=== PATIENT | male | born 1970 | race Caucasian/White ===

== ENCOUNTER 2019-01-25 11:41 | Inpatient (IN) | payer OTHER ==
[2019-01-25] MEDS ORDERED: ONDANSETRON HCL INJ/PF 4 MG/2 ML SDV IV ONE (12:22)
[2019-01-25] MEDS ORDERED: NORMAL SALINE 1000 ML 1,000 ML IV ONE ×3 (12:22→14:28)
--- NOTE | 2019-01-25 12:23 | ER Document Report ---
ED Medical Screen (RME) - General Chief Complaint: Abdominal Cramping Stated Complaint: HEAT EXPOSURE Time Seen by Provider: 01/25/19 12:13 Primary Care Provider: DEANDRA SEPULVEDA [Primary Care Provider] - Follow up as needed Mode of Arrival: Ambulatory Information source: Patient Notes: Patient is a 48-year-old male presented emergency department with complaints of all over body cramping, fatigue and nausea. He states that on Monday he got overheated and had vomiting for several days. He states that although the vomiting has worries resolved he continues to have generalized malaise and nausea. Exam: Patient alert, oriented and answering all questions appropriately and in no acute distress at the time of my evaluation. Lung sounds clear and equal bilaterally. Heart sounds S1-S2 present with no ectopy noted. I have greeted and performed a rapid initial assessment of this patient. A comprehensive ED assessment and evaluation of the patient, analysis of test results and completion of the medical decision making process will be conducted by additional ED providers. I have specifically instructed the patient or family members with the patient to immediately return to any nursing staff should anything change in the patient's condition or with their chief complaint. This medical record was dictated with voice recognizing software. There may be grammatical, syntax errors that are unintended. TRAVEL OUTSIDE OF THE [place] IN LAST 30 DAYS: No - Related Data Allergies/Adverse Reactions: Penicillins Allergy (Verified 01/25/19 11:45) Past Medical History - Social History Chew tobacco use (# tins/day): No Frequency of alcohol use: Social Drug Abuse: None - Past Medical History Cardiac Medical History: Reports: Hx Hypercholesterolemia Renal/ Medical History: Denies: Hx Peritoneal Dialysis Physical Exam - Vital signs Vitals: Temp Pulse Resp BP Pulse Ox 98.4 F 79 12 108/74 97 01/25/19 12:04 01/25/19 12:04 01/25/19 12:04 01/25/19 12:04 01/25/19 12:04 Course - Vital Signs Vital signs: Temp Pulse Resp BP Pulse Ox 98.4 F 79 12 108/74 97 01/25/19 12:04 01/25/19 12:04 01/25/19 12:04 01/25/19 12:04 01/25/19 12:04 Doctor's Discharge - Discharge Referrals: LOCALMD,NO [Primary Care Provider] - Follow up as needed
[2019-01-25 12:41] LABS: HEMATOCRIT 46.9 % (37.9-51.0); HEMOGLOBIN 16.2 g/dL (13.5-17.0); MEAN CORPUSCULAR HGB CONC 34.5 g/dL (32.0-36.0); MEAN CORPUSCULAR VOLUME 87 fl (80-97); PLATELET COUNT 390 10^3/uL (150-450); RED CELL DISTRIBUTION WIDTH 13.9 % (11.5-14.0)
[2019-01-25 12:45] LABS: AMORPHOUS SEDIMENT,URINE TRACE /HPF; APPEARANCE,URINE CLOUDY; BILIRUBIN,URINE NEGATIVE (NEGATIVE); COLOR,URINE YELLOW; GLUCOSE, URINE 50 mg/dL (NEGATIVE); KETONES,URINE NEGATIVE (NEGATIVE); LEUKOCYTE ESTERASE,URINE NEGATIVE (NEGATIVE); NITRITE,URINE NEGATIVE (NEGATIVE); PROTEIN,URINE 100 mg/dL (NEGATIVE); URINE SPECIFIC GRAVITY 1.015; UROBILINOGEN,URINE NEGATIVE mg/dL (<2.0)
[2019-01-25 13:02] LABS: ABSOLUTE LYMPHOCYTES# (MANUAL) 4.6 10^3/uL (0.5-4.7); ABSOLUTE MONOCYTES # (MANUAL) 1.5 10^3/uL (0.1-1.4); BASOPHILS % (MANUAL) 0 % (0-2); EOSINOPHILS % (MANUAL) 1 % (0-6); LYMPHOCYTES % (MANUAL) 21 % (13-45); MONOCYTES % (MANUAL) 7 % (3-13); RBC MORPHOLOGY COMMENT NORMO-CYTIC/CHROMIC; SEGMENTED NEUTROPHILS % (MAN) 71 % (42-78); TOTAL CELLS COUNTED 100
[2019-01-25 13:03] LABS: PLATELET CLUMPS PRESENT; PLATELET COMMENT ADEQUATE
--- NOTE | 2019-01-25 13:29 | ER Document Report ---
ED General - General Chief Complaint: Abdominal Cramping Stated Complaint: HEAT EXPOSURE Time Seen by Provider: 01/25/19 12:13 Primary Care Provider: DAENDRA SEPULVEDA [NO LOCAL MD] - Follow up as needed Mode of Arrival: Ambulatory Information source: Patient, Relative TRAVEL OUTSIDE OF THE [place] 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 He admittedly did not drink enough fluid. Yesterday, he developed generalized cramping, N/V and malaise. He feels somewhat better today but still dehydrated. - Related Data Allergies/Adverse Reactions: Penicillins Allergy (Verified 01/25/19 11:45) Past Medical History - General Information source: Patient - Social History Smoking Status: Never Smoker Chew tobacco use (# tins/day): No Frequency of alcohol use: Social Drug Abuse: None Family History: None Patient has suicidal ideation: No Patient has homicidal ideation: No - Past Medical History Cardiac Medical History: Reports: Hx Hypercholesterolemia Renal/ Medical History: Denies: Hx Peritoneal Dialysis Review of Systems - Review of Systems Constitutional: See HPI, Malaise, Weakness EENT: No symptoms reported Cardiovascular: No symptoms reported Respiratory: No symptoms reported Gastrointestinal: See HPI, Nausea, Vomiting Skin: No symptoms reported Neurological/Psychological: No symptoms reported -: Yes All other systems reviewed and negative Physical Exam - Vital signs Vitals: Temp Pulse Resp BP Pulse Ox 98.4 F 79 12 108/74 97 01/25/19 12:04 01/25/19 12:04 01/25/19 12:04 01/25/19 12:04 01/25/19 12:04 - General General appearance: Appears well In distress: None - HEENT Head: Normocephalic Mouth/Lips: Normal Mucous membranes: Other - slightly dry mucous membranes Pharynx: Normal Neck: Normal - Respiratory Respiratory status: No respiratory distress Breath sounds: Normal - Cardiovascular Rhythm: Regular Heart sounds: Normal auscultation Murmur: No - Abdominal Distension: No distension Bowel sounds: Normal Tenderness: Nontender Organomegaly: No organomegaly - Back Back: Normal, Nontender - Extremities General upper extremity: Normal inspection General lower extremity: Normal inspection - Neurological Neuro grossly intact: Yes Cognition: Normal Orientation: AAOx4 Speech: Normal Motor strength normal: LUE, RUE, LLE, RLE Sensory: Normal Course - Re-evaluation Re-evalutation: 01/25/19 14:40 I have re-assessed him and he feels better on his 3rd liter him of IVF. I have informed him that I recommend he being admitted for IVF and obs. and he is in agreement with this. - Vital Signs Vital signs: Temp Pulse Resp BP Pulse Ox 98.4 F 79 12 108/74 97 01/25/19 12:04 01/25/19 12:04 01/25/19 12:04 01/25/19 12:04 01/25/19 12:04 - Laboratory Result Diagrams: 01/25/19 12:26 01/25/19 13:19 Laboratory results interpreted by me: 01/25/19 01/25/19 01/25/19 12:26 12:26 13:19 WBC 22.0 H Abs Neuts (Manual) 15.6 H Abs Monocytes (Manual) 1.5 H Sodium 126.2 L Potassium 5.3 H Chloride 81 L Carbon Dioxide 19 L Anion Gap 26 H BUN 100 H Creatinine 11.68 H Est GFR ( Amer) 6 L Est GFR (Non-Af Amer) 5 L Calcium 7.3 L Creatine Kinase 886 H CK-MB (CK-2) Urine Protein 100 H Urine Glucose (UA) 50 H Urine Blood LARGE H 01/25/19 13:25 WBC Abs Neuts (Manual) Abs Monocytes (Manual) Sodium Potassium Chloride Carbon Dioxide Anion Gap BUN Creatinine Est GFR ( Amer) Est GFR (Non-Af Amer) Calcium Creatine Kinase CK-MB (CK-2) 4.79 H Urine Protein Urine Glucose (UA) Urine Blood - Consults akua Solis Time consulted: 14:43 Critical Care Note - Critical Care Note Total time excluding time spent on procedures (mins): 30 Discharge - Discharge Clinical Impression: Rhabdomyolysis Qualifiers: Rhabdomyolysis type: non-traumatic Qualified Code(s): M62.82 - Rhabdomyolysis Renal failure Qualifiers: Renal failure chronicity: acute Acute renal failure type: unspecified Qualified Code(s): N17.9 - Acute kidney failure, unspecified Condition: Stable Disposition: ADMITTED OBSERVATION Admitting Provider: [facility] Admitted: Telemetry Referrals: LOCALMD,NO [NO LOCAL MD] - Follow up as needed
[2019-01-25 13:48] LABS: ALANINE AMINOTRANSFERASE 25 U/L (21-72); ALBUMIN 4.4 g/dL (3.5-5.0); ALKALINE PHOSPHATASE 54 U/L (38-126); ASPARTATE AMINO TRANSFERASE 24 U/L (17-59); BILIRUBIN,DIRECT 0.4 mg/dL (0.0-0.4); BLOOD UREA NITROGEN 100 mg/dL (7-20); CALCIUM 7.3 mg/dL (8.4-10.2); CREATINE KINASE 886 U/L (55-170); GLUCOSE 97 mg/dL (75-110); POTASSIUM 5.3 mmol/L (3.6-5.0); TOTAL PROTEIN 6.8 g/dL (6.3-8.2)
[2019-01-25 13:53] LABS: CARBON DIOXIDE 19 mmol/L (22-30); CHLORIDE 81 mmol/L (98-107); SODIUM 126.2 mmol/L (137-145)
[2019-01-25 13:56] LABS: ANION GAP 26 (5-19)
[2019-01-25 14:24] LABS: CREATINE KINASE MB 4.79 ng/mL (<4.55)
[2019-01-25 14:26] LABS: TROPONIN I < 0.012 ng/mL
[2019-01-25] MEDS ORDERED: ACETAMINOPHEN 325 MG TABLET PO PRN (16:28)
[2019-01-25] MEDS ORDERED: MAG HYDROX/AL HYDROX/SIMETH SUSP 30 ML UDCUP PO PRN (16:28)
[2019-01-25] MEDS ORDERED: ONDANSETRON HCL INJ/PF 4 MG/2 ML SDV IV PRN (16:28)
[2019-01-25] MEDS ORDERED: MAGNESIUM HYDROXIDE SUSP 30 ML UDCUP PO PRN (16:28)
[2019-01-25] MEDS ORDERED: ALBUTEROL SULFATE 0.083% NEB 2.5 MG/3 ML AMPUL NEB PRN (16:28)
[2019-01-25] MEDS ORDERED: PROMETHAZINE HCL 25 MG TABLET PO PRN (16:28)
[2019-01-25] MEDS: NORMAL SALINE 1000 ML 1,000 ML IV PRN (17:31)
[2019-01-25 17:44] LABS: ANION GAP 19 (5-19); BLOOD UREA NITROGEN 90 mg/dL (7-20); CARBON DIOXIDE 20 mmol/L (22-30); CHLORIDE 91 mmol/L (98-107); GLUCOSE 95 mg/dL (75-110); POTASSIUM 5.4 mmol/L (3.6-5.0); SODIUM 129.6 mmol/L (137-145)
--- NOTE | 2019-01-25 17:51 | PDOC H&P ---
History of Present Illness Admission Date/PCP: 01/25/19 16:28 HELENA GA MD Patient complains of: nausea/vomiting, muscle cramps History of Present Illness: NAWAF MOYA is a 48 year old male with a past medical history for hypertension and cavernous angioma with a history of intracranial bleed (no stents or coils) who presented to the emergency department today with a complaint of 3 days of nausea and vomiting with poor p.o. intake now associated with muscle cramps. 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 Evaluation in the emergency department reveals leukocytosis (WBCs 22), and acute renal failure with a creatinine of 11.68, BUN 100, anion gap acidosis, hyponatremia, hyperkalemia, and CK of 886. Urinalysis is negative, EKG demonstrates normal sinus rhythm. Vital signs are stable. Patient does endorse 2 days without urinary output; he is not producing large volumes of urine following 3 L IV fluid bolus. He is referred to the hospitalist service for admission and management of the above-stated complaints and findings. Past Medical History Cardiac Medical History: Reports: Hyperlipidema Pulmonary Medical History: Reports: None EENT Medical History: Reports: None Neurological Medical History: Reports: Other - Cavernous angioma Endocrine Medical History: Reports: None Renal/ Medical History: Reports: None Malignancy Medical History: Reports: None GI Medical History: Reports: None Musculoskeltal Medical History: Reports: None Skin Medical History: Reports: None Psychiatric Medical History: Reports: None Traumatic Medical History: Reports: None Hematology: Reports: None Infectious Medical History: Reports: None Past Surgical History Past Surgical History: Reports: None Social History Information Source: Patient Lives with: Family Smoking Status: Never Smoker Frequency of Alcohol Use: Social Hx Recreational Drug Use: No Drugs: None Hx Prescription Drug Abuse: No - Advance Directive Resuscitation Status: Full Code Surrogate healthcare decision maker:: Patient's , Larissa Moya Family History Family History: Reviewed & Not Pertinent, CAD, CVA, Hypertension, Malignancy Parental Family History Reviewed: Yes Children Family History Reviewed: Yes Sibling(s) Family History Reviewed.: Yes Medication/Allergy Home Medications: Lisinopril [Prinivil] 20 mg PO DAILY 01/25/19 Allergies/Adverse Reactions: Penicillins Allergy (Verified 01/25/19 11:45) Review of Systems Constitutional: PRESENT: anorexia, headache(s), weakness. ABSENT: chills, fever(s), weight gain, weight loss Eyes: ABSENT: visual disturbances Ears: ABSENT: hearing changes Nose, Mouth, and Throat: PRESENT: sore throat Cardiovascular: ABSENT: chest pain, dyspnea on exertion, edema, orthropnea, palpitations Respiratory: ABSENT: cough, hemoptysis Gastrointestinal: PRESENT: nausea, vomiting. ABSENT: abdominal pain, constipation, diarrhea, hematemesis, hematochezia Genitourinary: ABSENT: dysuria, hematuria Musculoskeletal: PRESENT: other - Muscle cramps. ABSENT: joint swelling Integumentary: ABSENT: rash, wounds Neurological: ABSENT: abnormal gait, abnormal speech, confusion, dizziness, focal weakness, syncope Psychiatric: ABSENT: anxiety, depression, homidical ideation, suicidal ideation Endocrine: PRESENT: other - Oliguria. ABSENT: cold intolerance, heat intolerance, polydipsia, polyuria Hematologic/Lymphatic: ABSENT: easy bleeding, easy bruising Physical Exam Vital Signs: Temp Pulse Resp BP Pulse Ox 98.4 F 79 18 103/56 L 97 01/25/19 12:04 01/25/19 12:04 01/25/19 17:01 01/25/19 17:01 01/25/19 17:01 Intake & Output 01/24/19 01/25/19 01/26/19 06:59 06:59 06:59 Intake Total 3000 Balance 3000 Weight 74.2 kg General appearance: PRESENT: no acute distress, cooperative, well-developed, well-nourished Head exam: PRESENT: atraumatic, normocephalic Eye exam: PRESENT: conjunctiva pink, EOMI, PERRLA. ABSENT: scleral icterus Ear exam: PRESENT: normal external ear exam Mouth exam: PRESENT: moist, tongue midline Neck exam: ABSENT: carotid bruit, JVD, lymphadenopathy, thyromegaly Respiratory exam: PRESENT: clear to auscultation seb, symmetrical, unlabored. ABSENT: rales, rhonchi, wheezes Cardiovascular exam: PRESENT: RRR, +S1, +S2. ABSENT: diastolic murmur, rubs, systolic murmur Pulses: PRESENT: normal dorsalis pedis pul Vascular exam: PRESENT: normal capillary refill GI/Abdominal exam: PRESENT: normal bowel sounds, soft. ABSENT: distended, guarding, mass, organolmegaly, rebound, tenderness Rectal exam: PRESENT: deferred Extremities exam: PRESENT: full ROM. ABSENT: calf tenderness, clubbing, pedal edema Neurological exam: PRESENT: alert, awake, oriented to person, oriented to place, oriented to time, oriented to situation, CN II-XII grossly intact. ABSENT: motor sensory deficit Psychiatric exam: PRESENT: appropriate affect, normal mood. ABSENT: homicidal ideation, suicidal ideation Skin exam: PRESENT: dry, intact, warm. ABSENT: cyanosis, rash Results Laboratory Results: 01/25/19 12:26 01/25/19 01/25/19 01/25/19 12:26 12:26 12:26 WBC 22.0 H RBC 5.40 Hgb 16.2 Hct 46.9 MCV 87 MCH 30.0 MCHC 34.5 RDW 13.9 Plt Count 390 Seg Neutrophils % Not Reportable Lymphocytes % Not Reportable Monocytes % Not Reportable Eosinophils % Not Reportable Basophils % Not Reportable Absolute Neutrophils Not Reportable Absolute Lymphocytes Not Reportable Absolute Monocytes Not Reportable Absolute Eosinophils Not Reportable Absolute Basophils Not Reportable Sodium Cancelled Potassium Cancelled Chloride Cancelled Carbon Dioxide Cancelled Anion Gap Cancelled BUN Cancelled Creatinine Cancelled Est GFR ( Amer) Cancelled Est GFR (Non-Af Amer) Cancelled Glucose Cancelled Calcium Cancelled Total Bilirubin Cancelled AST Cancelled ALT Cancelled Alkaline Phosphatase Cancelled Total Protein Cancelled Albumin Cancelled Urine Color YELLOW Urine Appearance CLOUDY Urine pH 5.0 Ur Specific [place] 1.015 Urine Protein 100 H Urine Glucose (UA) 50 H Urine Ketones NEGATIVE Urine Blood LARGE H Urine Nitrite NEGATIVE Ur Leukocyte Esterase NEGATIVE Urine WBC (Auto) 11 Urine RBC (Auto) 7 01/25/19 13:19 WBC RBC Hgb Hct MCV MCH MCHC RDW Plt Count Seg Neutrophils % Lymphocytes % Monocytes % Eosinophils % Basophils % Absolute Neutrophils Absolute Lymphocytes Absolute Monocytes Absolute Eosinophils Absolute Basophils Sodium 126.2 L Potassium 5.3 H Chloride 81 L Carbon Dioxide 19 L Anion Gap 26 H BUN 100 H Creatinine 11.68 H Est GFR ( Amer) 6 L Est GFR (Non-Af Amer) 5 L Glucose 97 Calcium 7.3 L Total Bilirubin 1.0 AST 24 ALT 25 Alkaline Phosphatase 54 Total Protein 6.8 Albumin 4.4 Urine Color Urine Appearance Urine pH Ur Specific [place] Urine Protein Urine Glucose (UA) Urine Ketones Urine Blood Urine Nitrite Ur Leukocyte Esterase Urine WBC (Auto) Urine RBC (Auto) 01/25/19 01/25/19 13:19 13:25 Creatine Kinase 886 H CK-MB (CK-2) 4.79 H Troponin I < 0.012 Assessment and Plan - Diagnosis (1) Renal failure Qualifiers: Renal failure chronicity: acute Acute renal failure type: unspecified Qualified Code(s): N17.9 - Acute kidney failure, unspecified Is this a current diagnosis for this admission?: Yes Plan: Patient is admitted with a creatinine of 7.68, BUN 100. He has associated hyponatremia, hyperkalemia, and anion gap acidosis. He does report 2 days of oliguria now has good urinary output following 3 L normal saline bolus. No history of chronic kidney disease personally or in family. Denies illicit drug use. Patient will be provided generous IV fluids. Avoid nephrotoxic medications. Serial chemistries every 6 hours to monitor electrolyte depletion. Nephrology has been consulted; per ED provider, Dr. Solis is aware of patient and will follow. (2) Rhabdomyolysis Qualifiers: Rhabdomyolysis type: non-traumatic Qualified Code(s): M62.82 - Rhabdomyolysis Is this a current diagnosis for this admission?: Yes Plan: CK 886 Continue IV fluids. (3) Leukocytosis Is this a current diagnosis for this admission?: Yes Plan: Likely secondary to heat exhaustion w/ nausea and vomiting. Patient is afebrile. Urinalysis is negative. No signs of active infection at this time. No indications for antibiotic therapy at this time. Follow up CBC in am (4) Hypertension Is this a current diagnosis for this admission?: Yes Plan: Holding home dose lisinopril 2/2 ARF. Monitor for need for antihypertensives. (5) Heat exhaustion Is this a current diagnosis for this admission?: Yes Plan: Evidenced by dehydration resulting in rhabdomyolysis and acute renal failure. Supportive care. - Time Time Spent with patient: 35 or more minutes Medications reviewed and adjusted accordingly: Yes Anticipated discharge: Home Within: within 72 hours - Inpatient Certification Based on my medical assessment, after consideration of the patient's comorbidities, presenting symptoms, or acuity I expect that the services needed warrant INPATIENT care.: Yes I certify that my determination is in accordance with my understanding of Medicare's requirements for reasonable and necessary INPATIENT services [42 CFR 412.3e].: Yes Medical Necessity: Need Close Monitoring Due to Risk of Patient Decompensation, Need For IV Fluids, Risk of Complication if Not Cared For in Hospital
[2019-01-25 18:35] LABS: URINE AMPHETAMINES SCREEN NEGATIVE; URINE BARBITURATES SCREEN NEGATIVE; URINE BENZODIAZEPINES SCREEN NEGATIVE; URINE COCAINE SCREEN NEGATIVE; URINE METHADONE SCREEN NEGATIVE; URINE PHENCYCLIDINE SCREEN NEGATIVE
[2019-01-25] MEDS ORDERED: CALCIUM GLUCONATE 1,000 MG in DEXTROSE 5%-WATER 50 ML IV ONE (18:46)
[2019-01-25] MEDS ORDERED: CALCIUM GLUCONATE 1000 MG/10 ML INJ IV ONE ×2 (19:00→21:20)
[2019-01-25] MEDS ORDERED: LACTULOSE SYRUP 20 GM/30 ML UDCUP PO ONE ×2 (19:00→22:00)
[2019-01-25 19:05] LABS: URINE MARIJUANA (THC) SCREEN UNCONFIRMED POSITIVE
[2019-01-25] MEDS: FAMOTIDINE 20 MG TABLET PO SCH (21:42)
[2019-01-25] MEDS: HEPARIN SOD (PORCINE) 5,000 UNIT/ML 1 ML SYRINGE SUBCUT SCH (21:43)
[2019-01-25 23:15] LABS: ANION GAP 15 (5-19); BLOOD UREA NITROGEN 81 mg/dL (7-20); CALCIUM 7.8 mg/dL (8.4-10.2); CARBON DIOXIDE 20 mmol/L (22-30); CHLORIDE 98 mmol/L (98-107); GLUCOSE 115 mg/dL (75-110); POTASSIUM 4.9 mmol/L (3.6-5.0); SODIUM 133.4 mmol/L (137-145)
[2019-01-26] MEDS: NORMAL SALINE 1000 ML 1,000 ML IV PRN ×3 (00:24→15:41)
[2019-01-26 04:42] LABS: HEMATOCRIT 39.1 % (37.9-51.0); MEAN CORPUSCULAR HEMOGLOBIN 30.1 pg (27.0-33.4); MEAN CORPUSCULAR HGB CONC 34.4 g/dL (32.0-36.0); MEAN CORPUSCULAR VOLUME 88 fl (80-97); PLATELET COUNT 278 10^3/uL (150-450); RED BLOOD COUNT 4.46 10^6/uL (4.35-5.55); RED CELL DISTRIBUTION WIDTH 13.8 % (11.5-14.0); WHITE BLOOD COUNT 11.2 10^3/uL (4.0-10.5)
[2019-01-26 04:50] LABS: HEMOGLOBIN 13.4 g/dL (13.5-17.0)
[2019-01-26 04:55] LABS: ANION GAP 13 (5-19); BLOOD UREA NITROGEN 65 mg/dL (7-20); CALCIUM 7.9 mg/dL (8.4-10.2); CARBON DIOXIDE 20 mmol/L (22-30); CHLORIDE 103 mmol/L (98-107); CREATINE KINASE 619 U/L (55-170); GLUCOSE 99 mg/dL (75-110); PHOSPHORUS 5.1 mg/dL (2.5-4.5); POTASSIUM 5.1 mmol/L (3.6-5.0)
[2019-01-26] MEDS: HEPARIN SOD (PORCINE) 5,000 UNIT/ML 1 ML SYRINGE SUBCUT SCH ×2 (06:19→13:15)
[2019-01-26] MEDS: DOCUSATE SODIUM 100 MG CAPSULE PO SCH (09:26)
[2019-01-26] MEDS: FAMOTIDINE 20 MG TABLET PO SCH ×2 (09:26→21:46)
[2019-01-26 12:20] LABS: ANION GAP 10 (5-19); BLOOD UREA NITROGEN 52 mg/dL (7-20); CALCIUM 8.3 mg/dL (8.4-10.2); CARBON DIOXIDE 23 mmol/L (22-30); CHLORIDE 106 mmol/L (98-107); GLUCOSE 93 mg/dL (75-110); POTASSIUM 5.5 mmol/L (3.6-5.0)
[2019-01-26] MEDS ORDERED: CALCIUM GLUCONATE 1,000 MG in DEXTROSE 5%-WATER 50 ML IV ONE (14:59)
[2019-01-26] MEDS ORDERED: ZOLPIDEM TARTRATE 5 MG TABLET PO PRN (15:00)
[2019-01-26] MEDS ORDERED: CALCIUM GLUCONATE 1000 MG/10 ML INJ IV ONE (15:30)
[2019-01-26] MEDS ORDERED: DEXTROSE 50%-WATER 25 GM/50 ML DISP.SYRIN IV ONE (15:30)
[2019-01-26] MEDS ORDERED: INSULIN REG, HUMAN 100 UNIT/ML 3 ML VIAL (PYX) IV ONE (15:30)
[2019-01-26 18:39] LABS: ANION GAP 10 (5-19); BLOOD UREA NITROGEN 43 mg/dL (7-20); CARBON DIOXIDE 22 mmol/L (22-30); CHLORIDE 108 mmol/L (98-107); POTASSIUM 4.9 mmol/L (3.6-5.0); SODIUM 139.8 mmol/L (137-145)
[2019-01-26 18:41] LABS: GLUCOSE 65 mg/dL (75-110)
[2019-01-26] MEDS ORDERED: DEXTROSE 40% GEL 15 GM TUBE PO PRN ×2 (18:53)
[2019-01-26] MEDS ORDERED: GLUCAGON,HUMAN RECOMB 1 MG INJ IM PRN (18:53)
[2019-01-26] MEDS ORDERED: DEXTROSE 50%-WATER 25 GM/50 ML DISP.SYRIN IV PRN ×2 (18:53)
--- NOTE | 2019-01-26 18:55 | Progress Note Acknowledgement ---
Progress Note Acknowledgement Progess Note Acknowledgement: I, the undersigned member of the medical staff with appropriate privileges and with supervisory authority over Dot Valdez, a [facility] practice allied health professional, acknowledge that I have reviewed the progress notes entered on this patient, and in my professional judgment believe that the assessment made and/or any care evidenced was appropriate
--- NOTE | 2019-01-26 19:04 | PDOC PROGRESS REPORT ---
Subjective Progress Note for:: 01/26/19 Subjective:: NAWAF MOYA is a 48 year old male with a past medical history for hypertension and cavernous angioma with a history of intracranial bleed (no stents or coils) who was admitted 01/25/2019 for acute renal failure and rhabdomyolysis. Patient was seen on afternoon rounds with family members present. He reports that he is feeling well today; all fatigue, muscle cramps, and nausea have resolved. He is tolerating a regular diet without difficulty. He further denies fever, chills, chest pain, palpitations, dyspnea, orthopnea, cough, abdominal pain, diarrhea, and peripheral edema. He reports excellent urinary output. He has no new questions or concerns. No concerns per nursing. Reason For Visit: ACUTE RENAL FAILURE,HEAT EXHAUSTION, Physical Exam Vital Signs: Temp Pulse Resp BP Pulse Ox 98.0 F 80 20 124/69 98 01/26/19 11:59 01/26/19 11:59 01/26/19 11:59 01/26/19 11:59 01/26/19 11:59 Intake & Output 01/25/19 01/26/19 01/27/19 06:59 06:59 06:59 Intake Total 4320 1999 Balance 4320 1999 Weight 72.6 kg General appearance: PRESENT: no acute distress, well-developed, well-nourished Head exam: PRESENT: atraumatic, normocephalic Eye exam: PRESENT: conjunctiva pink, EOMI, PERRLA. ABSENT: scleral icterus Ear exam: PRESENT: normal external ear exam Mouth exam: PRESENT: moist, tongue midline Neck exam: ABSENT: carotid bruit, JVD, lymphadenopathy, thyromegaly Respiratory exam: PRESENT: clear to auscultation seb, symmetrical, unlabored. ABSENT: rales, rhonchi, wheezes Cardiovascular exam: PRESENT: RRR. ABSENT: diastolic murmur, rubs, systolic murmur Pulses: PRESENT: normal dorsalis pedis pul Vascular exam: PRESENT: normal capillary refill GI/Abdominal exam: PRESENT: normal bowel sounds, soft. ABSENT: distended, guarding, mass, organolmegaly, rebound, tenderness Rectal exam: PRESENT: deferred Extremities exam: PRESENT: full ROM. ABSENT: calf tenderness, clubbing, pedal edema Musculoskeletal exam: PRESENT: ambulatory Neurological exam: PRESENT: alert, awake, oriented to person, oriented to place, oriented to time, oriented to situation, CN II-XII grossly intact. ABSENT: motor sensory deficit Psychiatric exam: PRESENT: appropriate affect, normal mood. ABSENT: homicidal ideation, suicidal ideation Skin exam: PRESENT: dry, intact, warm. ABSENT: cyanosis, rash Results Laboratory Results: 01/26/19 04:23 01/26/19 18:15 01/25/19 01/26/19 01/26/19 22:42 04:23 04:23 WBC 11.2 H RBC 4.46 Hgb 13.4 L D Hct 39.1 MCV 88 MCH 30.1 MCHC 34.4 RDW 13.8 Plt Count 278 Sodium 133.4 L 136.0 L Potassium 4.9 5.1 H Chloride 98 103 Carbon Dioxide 20 L 20 L Anion Gap 15 13 BUN 81 H 65 H Creatinine 7.32 H 5.14 H Est GFR ( Amer) 10 L 15 L Est GFR (Non-Af Amer) 8 L 12 L Glucose 115 H 99 Calcium 7.8 L 7.9 L Ionized Calcium Holli Phosphorus 5.1 H Magnesium 2.3 01/26/19 01/26/19 01/26/19 09:45 11:44 18:15 WBC RBC Hgb Hct MCV MCH MCHC RDW Plt Count Sodium 139.0 139.8 Potassium 5.5 H 4.9 Chloride 106 108 H Carbon Dioxide 23 22 Anion Gap 10 10 BUN 52 H 43 H Creatinine 3.12 H 2.53 H Est GFR ( Amer) 26 L 33 L Est GFR (Non-Af Amer) 21 L 27 L Glucose 93 65 L Calcium 8.3 L 9.0 Ionized Calcium Holli 1.07 L Phosphorus Magnesium 01/25/19 01/25/19 01/26/19 13:19 13:25 04:23 Creatine Kinase 886 H 619 H CK-MB (CK-2) 4.79 H Troponin I < 0.012 01/26/19 04:23 Creatine Kinase CK-MB (CK-2) 2.02 Troponin I Assessment and Plan - Diagnosis (1) Renal failure Qualifiers: Renal failure chronicity: acute Acute renal failure type: unspecified Qualified Code(s): N17.9 - Acute kidney failure, unspecified Is this a current diagnosis for this admission?: Yes Plan: Significant improvement; Cr 11.68-> 2.53 Anion gap acidosis is resolved. No history of chronic kidney disease personally or in family. Denies illicit drug use; UDS positive for THC only. He is admitted to the medical floor on telemetry. Will continue generous IV fluids. Avoid nephrotoxic medications. Follow chemistries. Nephrology has been consulted; per ED provider, Dr. Solis is aware of patient and will follow. (2) Rhabdomyolysis Qualifiers: Rhabdomyolysis type: non-traumatic Qualified Code(s): M62.82 - Rhabdomyolysis Is this a current diagnosis for this admission?: Yes Plan: Improved; CK 886-> 619 Patient reports muscle cramping has resolved. Continue IV fluids. Follow daily CK (3) Leukocytosis Is this a current diagnosis for this admission?: Yes Plan: Improved; WBC 22-> 11 Likely secondary to heat exhaustion w/ nausea and vomiting. Patient is afebrile. Urinalysis is negative. No signs of active infection at this time. No indications for antibiotic therapy at this time. Follow up CBC in am (4) Hypertension Is this a current diagnosis for this admission?: Yes Plan: Acceptable blood pressures at this time. Holding home dose lisinopril 2/2 ARF. Monitor for need for antihypertensives. (5) Heat exhaustion Is this a current diagnosis for this admission?: Yes Plan: Evidenced by dehydration resulting in rhabdomyolysis and acute renal failure. Supportive care. (6) Hyperkalemia Is this a current diagnosis for this admission?: Yes Plan: Improved; 5.3-> 4.9-> 5.5-> 4.9 Secondary to #1 Received Lactulose overnight Checked EKG this afternoon; peak T-waves Have provided Calcium, D50, and Insulin w/ decrease to 4.9 Continue to monitor serial chemistries. (7) Hypocalcemia Is this a current diagnosis for this admission?: Yes Plan: Secondary to #1 Has received Calcium gluconate x2 with improvement Follow serial chemistries and continue to replace as needed. - Time Time Spent with patient: 25-34 minutes Medications reviewed and adjusted accordingly: Yes Anticipated discharge: Home
--- NOTE | 2019-01-26 19:25 | EKG REPORT ---
SEVERITY:- NORMAL ECG - SINUS RHYTHM : Confirmed by: Nancy Gusman 26-Jan-2019 19:23:51
--- NOTE | 2019-01-26 19:25 | EKG REPORT ---
SEVERITY:- NORMAL ECG - SINUS RHYTHM : Confirmed by: Nancy Gusman 26-Jan-2019 19:23:47
[2019-01-27 05:38] LABS: HEMATOCRIT 40.1 % (37.9-51.0); HEMOGLOBIN 13.4 g/dL (13.5-17.0); MEAN CORPUSCULAR HGB CONC 33.4 g/dL (32.0-36.0); MEAN CORPUSCULAR VOLUME 90 fl (80-97); PLATELET COUNT 273 10^3/uL (150-450); RED BLOOD COUNT 4.46 10^6/uL (4.35-5.55); RED CELL DISTRIBUTION WIDTH 13.8 % (11.5-14.0); WHITE BLOOD COUNT 10.2 10^3/uL (4.0-10.5)
[2019-01-27 06:02] LABS: ANION GAP 9 (5-19); BLOOD UREA NITROGEN 31 mg/dL (7-20); CALCIUM 8.7 mg/dL (8.4-10.2); CARBON DIOXIDE 22 mmol/L (22-30); CHLORIDE 110 mmol/L (98-107); GLUCOSE 88 mg/dL (75-110); POTASSIUM 5.6 mmol/L (3.6-5.0); SODIUM 140.7 mmol/L (137-145)
[2019-01-27] MEDS ORDERED: INSULIN REG, HUMAN 100 UNIT/ML 3 ML VIAL (PYX) IV ONE (07:45)
[2019-01-27] MEDS ORDERED: DEXTROSE 50%-WATER 25 GM/50 ML DISP.SYRIN IV ONE (07:45)
[2019-01-27] MEDS ORDERED: SODIUM POLYSTYRENE SULFONATE 15 GM/60 ML PO ONE (07:45)
[2019-01-27] MEDS ORDERED: CALCIUM GLUCONATE 1000 MG/10 ML INJ IV ONE (07:45)
[2019-01-27] MEDS: FAMOTIDINE 20 MG TABLET PO SCH ×2 (09:20→22:38)
[2019-01-27] MEDS: DOCUSATE SODIUM 100 MG CAPSULE PO SCH (09:21)
[2019-01-27 16:37] LABS: ANION GAP 7 (5-19); BLOOD UREA NITROGEN 21 mg/dL (7-20); CALCIUM 8.5 mg/dL (8.4-10.2); CARBON DIOXIDE 23 mmol/L (22-30); CHLORIDE 108 mmol/L (98-107); GLUCOSE 87 mg/dL (75-110); POTASSIUM 5.2 mmol/L (3.6-5.0); SODIUM 137.8 mmol/L (137-145)
--- NOTE | 2019-01-27 16:52 | PDOC PROGRESS REPORT ---
Subjective Progress Note for:: 01/27/19 Subjective:: NAWAF MOYA is a 48 year old male with a past medical history for hypertension and cavernous angioma with a history of intracranial bleed (no stents or coils) who was admitted 01/25/2019 for acute renal failure and rhabdomyolysis. Patient was seen on morning rounds. Patient was found resting in bed comfortably on room air. He reports that he is feeling well today; all fatigue, muscle cramps, and nausea have resolved. He is tolerating a regular diet withou t difficulty. He further denies fever, chills, chest pain, palpitations, dyspnea, orthopnea, cough, abdominal pain, diarrhea, and peripheral edema. He reports excellent urinary output. He has no new questions or concerns. No concerns per nursing. Reason For Visit: ACUTE RENAL FAILURE,HEAT EXHAUSTION, Physical Exam Vital Signs: Temp Pulse Resp BP Pulse Ox 98.3 F 72 19 137/71 H 99 01/27/19 11:59 01/27/19 14:00 01/27/19 11:59 01/27/19 11:59 01/27/19 11:59 Intake & Output 01/26/19 01/27/19 01/28/19 06:59 06:59 06:59 Intake Total 4320 4308 614 Output Total 2100 Balance 4320 2208 614 Weight 72.6 kg 73.8 kg General appearance: PRESENT: no acute distress, cooperative, well-developed, well-nourished Head exam: PRESENT: atraumatic, normocephalic Eye exam: PRESENT: conjunctiva pink, EOMI, PERRLA. ABSENT: scleral icterus Ear exam: PRESENT: normal external ear exam Mouth exam: PRESENT: moist, tongue midline Neck exam: ABSENT: carotid bruit, JVD, lymphadenopathy, thyromegaly Respiratory exam: PRESENT: clear to auscultation seb, symmetrical, unlabored. ABSENT: rales, rhonchi, wheezes Cardiovascular exam: PRESENT: RRR, +S1, +S2. ABSENT: diastolic murmur, rubs, systolic murmur Pulses: PRESENT: normal dorsalis pedis pul Vascular exam: PRESENT: normal capillary refill GI/Abdominal exam: PRESENT: normal bowel sounds, soft. ABSENT: distended, guarding, mass, organolmegaly, rebound, tenderness Rectal exam: PRESENT: deferred Extremities exam: PRESENT: full ROM. ABSENT: calf tenderness, clubbing, pedal edema Neurological exam: PRESENT: alert, awake, oriented to person, oriented to place, oriented to time, oriented to situation, CN II-XII grossly intact. ABSENT: motor sensory deficit Psychiatric exam: PRESENT: appropriate affect, normal mood. ABSENT: homicidal ideation, suicidal ideation Skin exam: PRESENT: dry, intact, warm. ABSENT: cyanosis, rash Results Laboratory Results: 01/27/19 05:17 01/27/19 15:50 01/26/19 01/27/19 01/27/19 18:15 05:17 05:17 WBC 10.2 RBC 4.46 Hgb 13.4 L Hct 40.1 MCV 90 MCH 30.0 MCHC 33.4 RDW 13.8 Plt Count 273 Sodium 139.8 140.7 Potassium 4.9 5.6 H Chloride 108 H 110 H Carbon Dioxide 22 22 Anion Gap 10 9 BUN 43 H 31 H Creatinine 2.53 H 1.76 H Est GFR ( Amer) 33 L 50 L Est GFR (Non-Af Amer) 27 L 41 L Glucose 65 L 88 Calcium 9.0 8.7 01/27/19 15:50 WBC RBC Hgb Hct MCV MCH MCHC RDW Plt Count Sodium 137.8 Potassium 5.2 H Chloride 108 H Carbon Dioxide 23 Anion Gap 7 BUN 21 H Creatinine 1.37 H Est GFR ( Amer) > 60 Est GFR (Non-Af Amer) 55 L Glucose 87 Calcium 8.5 01/25/19 01/25/19 01/26/19 13:19 13:25 04:23 Creatine Kinase 886 H 619 H CK-MB (CK-2) 4.79 H Troponin I < 0.012 01/26/19 04:23 Creatine Kinase CK-MB (CK-2) 2.02 Troponin I Assessment and Plan - Diagnosis (1) Renal failure Qualifiers: Renal failure chronicity: acute Acute renal failure type: unspecified Qualified Code(s): N17.9 - Acute kidney failure, unspecified Is this a current diagnosis for this admission?: Yes Plan: Significant improvement; Cr 11.68-> 1.37 Anion gap acidosis is resolved. No history of chronic kidney disease personally or in family. Denies illicit drug use; UDS positive for THC only. He is admitted to the medical floor on telemetry. Will continue generous IV fluids. Avoid nephrotoxic medications. Follow chemistries. Nephrology has been consulted; per ED provider, Dr. Solis is aware of patient and will follow. (2) Rhabdomyolysis Qualifiers: Rhabdomyolysis type: non-traumatic Qualified Code(s): M62.82 - Rhabdomyolysis Is this a current diagnosis for this admission?: Yes Plan: Improved; CK 886-> 619 Patient reports muscle cramping has resolved. Continue IV fluids. Follow daily CK (3) Leukocytosis Is this a current diagnosis for this admission?: Yes Plan: Resolved. Likely secondary to heat exhaustion w/ nausea and vomiting. Patient is afebrile. Urinalysis is negative. No signs of active infection at this time. No indications for antibiotic therapy at this time. Follow up CBC in am (4) Hypertension Is this a current diagnosis for this admission?: Yes Plan: Acceptable blood pressures at this time; borderline HTN. Holding home dose lisinopril 2/2 ARF. Consider Coreg Monitor for need for antihypertensives. (5) Heat exhaustion Is this a current diagnosis for this admission?: Yes Plan: Evidenced by dehydration resulting in rhabdomyolysis and acute renal failure. Supportive care. (6) Hyperkalemia Is this a current diagnosis for this admission?: Yes Plan: Improved; 5.3-> 4.9-> 5.5-> 4.9-> 5.6-> 5.2 Secondary to #1 Received Lactulose Checked EKG this afternoon; peak T-waves Have provided Calcium, D50, and Insulin w/ decrease to 4.9 Repeated Calcium, D50, and insulin this morning Kayexalate x 1 Start Valtessa Continue to monitor serial chemistries. (7) Hypocalcemia Is this a current diagnosis for this admission?: Yes Plan: Secondary to #1 Has received Calcium gluconate x3 with improvement Follow serial chemistries and continue to replace as needed. - Time Time Spent with patient: 15-24 minutes Medications reviewed and adjusted accordingly: Yes Anticipated discharge: Home Within: within 48 hours
[2019-01-27] MEDS ORDERED: PATIROMER 8.4 GM SUSP PACKET ONE (18:48)
[2019-01-27] MEDS: PATIROMER 8.4 GM SUSP PACKET PO SCH (19:04)
[2019-01-27] MEDS: NORMAL SALINE 1000 ML 1,000 ML IV PRN (22:38)
[2019-01-28 06:46] LABS: ANION GAP 6 (5-19); BLOOD UREA NITROGEN 17 mg/dL (7-20); CALCIUM 8.4 mg/dL (8.4-10.2); CARBON DIOXIDE 20 mmol/L (22-30); CHLORIDE 111 mmol/L (98-107); CREATINE KINASE 89 U/L (55-170); GLUCOSE 84 mg/dL (75-110); POTASSIUM 5.4 mmol/L (3.6-5.0); SODIUM 137.1 mmol/L (137-145)
[2019-01-28] MEDS ORDERED: CALCIUM GLUCONATE 1000 MG/10 ML INJ IV ONE (09:05)
[2019-01-28] MEDS ORDERED: DEXTROSE 50%-WATER 25 GM/50 ML DISP.SYRIN IV ONE (09:05)
[2019-01-28] MEDS ORDERED: INSULIN REG, HUMAN 100 UNIT/ML 3 ML VIAL (PYX) IV ONE (09:05)
[2019-01-28] MEDS ORDERED: SODIUM POLYSTYRENE SULFONATE 15 GM/60 ML PO ONE (09:30)
[2019-01-28] MEDS: FAMOTIDINE 20 MG TABLET PO SCH ×2 (09:49→21:42)
[2019-01-28] MEDS: DOCUSATE SODIUM 100 MG CAPSULE PO SCH (09:49)
[2019-01-28 17:28] LABS: ANION GAP 8 (5-19); BLOOD UREA NITROGEN 16 mg/dL (7-20); CALCIUM 8.8 mg/dL (8.4-10.2); CARBON DIOXIDE 23 mmol/L (22-30); CHLORIDE 106 mmol/L (98-107); GLUCOSE 81 mg/dL (75-110); POTASSIUM 5.1 mmol/L (3.6-5.0); SODIUM 137.2 mmol/L (137-145)
[2019-01-28] MEDS: PATIROMER 8.4 GM SUSP PACKET PO SCH (17:34)
--- NOTE | 2019-01-28 19:28 | EKG REPORT ---
SEVERITY:- NORMAL ECG - SINUS RHYTHM : Confirmed by: Suzy Ramos MD 28-Jan-2019 19:27:27
--- NOTE | 2019-01-28 19:48 | PDOC PROGRESS REPORT ---
Subjective Progress Note for:: 01/28/19 Subjective:: NAWAF MOYA is a 48 year old male with a past medical history for hypertension and cavernous angioma with a history of intracranial bleed (no stents or coils) who was admitted 01/25/2019 for acute renal failure and rhabdomyolysis. Patient was seen on morning rounds. Patient was found resting in bed comfortably on room air. He reports that he is feeling well today. He further denies fever, chills, chest pain, palpitations, dyspnea, orthopnea, cough, abdominal pain, diarrhea, and peripheral edema. He reports excellent urinary output. He has no new questions or concerns. No concerns per nursing. Reason For Visit: ACUTE RENAL FAILURE,HEAT EXHAUSTION, Physical Exam Vital Signs: Temp Pulse Resp BP Pulse Ox 98.2 F 66 17 136/72 H 100 01/28/19 18:12 01/28/19 18:12 01/28/19 18:12 01/28/19 18:12 01/28/19 18:12 Intake & Output 01/27/19 01/28/19 01/29/19 06:59 06:59 06:59 Intake Total 5308 1605 Output Total 2100 950 Balance 3208 655 Weight 73.8 kg 73.6 kg General appearance: PRESENT: no acute distress, cooperative, well-developed, well-nourished Head exam: PRESENT: atraumatic, normocephalic Eye exam: PRESENT: conjunctiva pink, EOMI, PERRLA. ABSENT: scleral icterus Ear exam: PRESENT: normal external ear exam Mouth exam: PRESENT: moist, tongue midline Neck exam: ABSENT: carotid bruit, JVD, lymphadenopathy, thyromegaly Respiratory exam: PRESENT: clear to auscultation seb, symmetrical, unlabored. ABSENT: rales, rhonchi, wheezes Cardiovascular exam: PRESENT: RRR, +S1, +S2. ABSENT: diastolic murmur, rubs, systolic murmur Pulses: PRESENT: normal dorsalis pedis pul Vascular exam: PRESENT: normal capillary refill GI/Abdominal exam: PRESENT: normal bowel sounds, soft. ABSENT: distended, guarding, mass, organolmegaly, rebound, tenderness Rectal exam: PRESENT: deferred Extremities exam: PRESENT: full ROM. ABSENT: calf tenderness, clubbing, pedal edema Neurological exam: PRESENT: alert, awake, oriented to person, oriented to place, oriented to time, oriented to situation, CN II-XII grossly intact. ABSENT: motor sensory deficit Psychiatric exam: PRESENT: appropriate affect, normal mood. ABSENT: homicidal ideation, suicidal ideation Skin exam: PRESENT: dry, intact, warm. ABSENT: cyanosis, rash Results Laboratory Results: 01/27/19 05:17 01/28/19 16:53 01/28/19 01/28/19 05:42 16:53 Sodium 137.1 137.2 Potassium 5.4 H 5.1 H Chloride 111 H 106 Carbon Dioxide 20 L 23 Anion Gap 6 8 BUN 17 16 Creatinine 1.17 1.18 Est GFR ( Amer) > 60 > 60 Est GFR (Non-Af Amer) > 60 > 60 Glucose 84 81 Calcium 8.4 8.8 01/25/19 01/25/19 01/26/19 13:19 13:25 04:23 Creatine Kinase 886 H 619 H CK-MB (CK-2) 4.79 H Troponin I < 0.012 01/26/19 01/28/19 04:23 05:42 Creatine Kinase 89 CK-MB (CK-2) 2.02 Troponin I Assessment and Plan - Diagnosis (1) Renal failure Qualifiers: Renal failure chronicity: acute Acute renal failure type: unspecified Qualified Code(s): N17.9 - Acute kidney failure, unspecified Is this a current diagnosis for this admission?: Yes Plan: Significant improvement; Cr 11.68-> 1.18 Anion gap acidosis is resolved. No history of chronic kidney disease personally or in family. Denies illicit drug use; UDS positive for THC only. He is admitted to the medical floor on telemetry. Will continue IV fluids. Avoid nephrotoxic medications. Follow chemistries. Discussed with Dr. Solis today; recommends continuing treatment for hyperkalemia as below, believes that hyperkalemia should resolve now that kidney function is returned to normal. Remains available for consult if needed. (2) Rhabdomyolysis Qualifiers: Rhabdomyolysis type: non-traumatic Qualified Code(s): M62.82 - Rhabdomyolysis Is this a current diagnosis for this admission?: Yes Plan: Resolved; CK 886-> 89 Patient reports muscle cramping has resolved. Continue IV fluids. Follow daily CK (3) Leukocytosis Is this a current diagnosis for this admission?: Yes Plan: Resolved. Likely secondary to heat exhaustion w/ nausea and vomiting. Patient is afebrile. Urinalysis is negative. No signs of active infection at this time. (4) Hypertension Is this a current diagnosis for this admission?: Yes Plan: Acceptable blood pressures at this time; borderline HTN. Holding home dose lisinopril 2/2 ARF. Consider Coreg Monitor for need for antihypertensives. (5) Heat exhaustion Is this a current diagnosis for this admission?: Yes Plan: Evidenced by dehydration resulting in rhabdomyolysis and acute renal failure. Supportive care. (6) Hyperkalemia Is this a current diagnosis for this admission?: Yes Plan: Resistance; 5.3-> 4.9-> 5.5-> 4.9-> 5.6-> 5.2-> 5.4-> 5.1 Secondary to #1 Received Lactulose EKG continues to show peak T-waves Have provided Calcium, D50, and Insulin x3 total (again today) Kayexalate x 1 today Continue Valtessa Continue to monitor serial chemistries. Spoke with Dr. Solis; advises to continue management of hyperkalemia as above. No indications for dialysis at this time. Remains available for consultation if needed. (7) Hypocalcemia Is this a current diagnosis for this admission?: Yes Plan: Resolved. Secondary to #1 Has received Calcium gluconate x4 with improvement Follow serial chemistries and continue to replace as needed. - Time Time Spent with patient: 25-34 minutes Medications reviewed and adjusted accordingly: Yes Anticipated discharge: Home Within: within 48 hours - Pending stabalization of hyperkalemia
[2019-01-28] MEDS: NORMAL SALINE 1000 ML 1,000 ML IV PRN (21:42)
[2019-01-29 07:58] LABS: ANION GAP 11 (5-19); BLOOD UREA NITROGEN 13 mg/dL (7-20); CALCIUM 8.9 mg/dL (8.4-10.2); CARBON DIOXIDE 21 mmol/L (22-30); CHLORIDE 107 mmol/L (98-107); GLUCOSE 86 mg/dL (75-110); POTASSIUM 4.7 mmol/L (3.6-5.0); SODIUM 138.5 mmol/L (137-145)
[2019-01-29] MEDS: FAMOTIDINE 20 MG TABLET PO SCH (09:09)
[2019-01-29] MEDS: DOCUSATE SODIUM 100 MG CAPSULE PO SCH (09:09)
[2019-01-29] MEDS: NORMAL SALINE 1000 ML 1,000 ML IV PRN (12:01)
--- NOTE | 2019-01-29 13:11 | PDOC DISCHARGE SUMMARY ---
General - Admit/Disc Date/PCP Admission Date/Primary Care Provider: 01/25/19 16:28 HELENA GA MD Discharge Date: 01/29/19 - Additional Information Resuscitation Status: Full Code Home Medications: Lisinopril [Prinivil] 20 mg PO DAILY 01/25/19 History of Present Illness History of Present Illness: NAWAF MOYA is a 48 year old male with a past medical history for hypertension and cavernous angioma with a history of intracranial bleed (no stents or coils) who presented to the emergency department today with a complaint of 3 days of nausea and vomiting with poor p.o. intake now associated with muscle cramps. 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 Evaluation in the emergency department reveals leukocytosis (WBCs 22), and acute renal failure with a creatinine of 11.68, BUN 100, anion gap acidosis, hyponatremia, hyperkalemia, and CK of 886. Urinalysis is negative, EKG demonstrates normal sinus rhythm. Vital signs are stable. Patient does endorse 2 days without urinary output; he is not producing large volumes of urine following 3 L IV fluid bolus. He is referred to the hospitalist service for admission and management of the above-stated complaints and findings. Hospital Course Hospital Course: NAWAF MOYA is a 48 year old male with a past medical history for hypertension and cavernous angioma with a history of intracranial bleed (no stents or coils) who presented to the emergency department today with a complaint of 3 days of nausea and vomiting with poor p.o. intake now associated with muscle cramps. 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 Evaluation in the emergency department reveals leukocytosis (WBCs 22), and acute renal failure with a creatinine of 11.68, BUN 100, anion gap acidosis, hyponatremia, hyperkalemia, and CK of 886. Urinalysis is negative, EKG demonstrates normal sinus rhythm. Vital signs are stable. Patient does endorse 2 days without urinary output; he is not producing large volumes of urine following 3 L IV fluid bolus. He is referred to the hospitalist service for admission and management of the above-stated complaints and findings. 01/29/2019: This afternoon patient seen propped up in bed. He is awake alert oriented. He is not in pain or distress. He is surrounded by family members and chatting with him. His vital signs are within normal limits. At admission his creatinine was 11.68 now today on the day of discharge it is trended down to 1.09. And his BUN was 100 now it is 13. Patient has been managed with IV fluids adequately. Patient advised to hydrate himself as much as he can and to follow-up with his primary care physician as needed. Physical Exam Vital Signs: Temp Pulse Resp BP Pulse Ox 98.8 F 65 16 132/64 H 99 01/29/19 00:00 01/29/19 02:00 01/29/19 00:00 01/29/19 00:00 01/29/19 00:00 Intake & Output 01/28/19 01/29/19 01/30/19 06:59 06:59 06:59 Intake Total 1605 1401 1000 Output Total 950 1175 Balance 656 789 1395 Weight 73.6 kg 74.7 kg General appearance: PRESENT: no acute distress, well-developed, well-nourished Head exam: PRESENT: atraumatic, normocephalic Eye exam: PRESENT: conjunctiva pink, EOMI, PERRLA. ABSENT: scleral icterus Ear exam: PRESENT: normal external ear exam Mouth exam: PRESENT: moist, tongue midline Neck exam: ABSENT: carotid bruit, JVD, lymphadenopathy, thyromegaly Respiratory exam: PRESENT: clear to auscultation seb. ABSENT: rales, rhonchi, wheezes Cardiovascular exam: PRESENT: RRR. ABSENT: diastolic murmur, rubs, systolic murmur Pulses: PRESENT: normal dorsalis pedis pul Vascular exam: PRESENT: normal capillary refill GI/Abdominal exam: PRESENT: normal bowel sounds, soft. ABSENT: distended, guarding, mass, organolmegaly, rebound, tenderness Rectal exam: PRESENT: deferred Extremities exam: PRESENT: full ROM. ABSENT: calf tenderness, clubbing, pedal edema Neurological exam: PRESENT: alert, awake, oriented to person, oriented to place, oriented to time, oriented to situation, CN II-XII grossly intact. ABSENT: motor sensory deficit Psychiatric exam: PRESENT: appropriate affect, normal mood. ABSENT: homicidal ideation, suicidal ideation Skin exam: PRESENT: dry, intact, warm. ABSENT: cyanosis, rash Results Laboratory Results: 01/27/19 05:17 01/29/19 06:40 01/28/19 01/29/19 16:53 06:40 Sodium 137.2 138.5 Potassium 5.1 H 4.7 Chloride 106 107 Carbon Dioxide 23 21 L Anion Gap 8 11 BUN 16 13 Creatinine 1.18 1.09 Est GFR ( Amer) > 60 > 60 Est GFR (Non-Af Amer) > 60 > 60 Glucose 81 86 Calcium 8.8 8.9 01/25/19 01/25/19 01/26/19 13:19 13:25 04:23 Creatine Kinase 886 H 619 H CK-MB (CK-2) 4.79 H Troponin I < 0.012 01/26/19 01/28/19 04:23 05:42 Creatine Kinase 89 CK-MB (CK-2) 2.02 Troponin I Qualifiers - * PATIENT BEING DISCHARGED WITH ANY OF THE FOLLOWING DIAGNOSIS: No Acute Heart Failure - Is this a Heart Failure Patient?: No 3. Anticoagulant therapy for permanect/persistent/paraoxysmal Afib or Aflutter: N/A
[2019-01-29 13:34] VITALS: BP 132/64
== END 2019-01-29 14:42 | disposition home or self-care (01) | DRG 683 ==
LOC: ER 11:41 → EH 15:20 → OBSVTOIN 16:28 → 4S 18:24
PROVIDERS: ADMIT Internal Medicine; ATTEND Internal Medicine
DX: N17.9 Acute kidney failure, unspecified (principal); E87.1 Hypo-osmolality and hyponatremia; E87.2 Acidosis; M62.82 Rhabdomyolysis; E83.51 Hypocalcemia; E87.5 Hyperkalemia; I10 Essential (primary) hypertension; D18.02 Hemangioma of intracranial structures; E78.5 Hyperlipidemia, unspecified; T67.5XXA Heat exhaustion, unspecified, initial encounter; E86.0 Dehydration; D72.829 Elevated white blood cell count, unspecified; Z82.49 Family history of ischemic heart disease and other diseases of the circulatory system; Z88.0 Allergy status to penicillin
CPT/HCPCS: 36415; 80048; 80053; 80307; 81001; 82330; 82550; 82553; 82962; 83735; 84100; 84484; 85025; 85027; 93005; 93010; 96360; 96361; 99291; J0610; J1815; J2405; J3490; J7030